=== PATIENT | male | born 1995 | race Caucasian/White ===

== ENCOUNTER 2016-06-08 11:11 | Emergency (ER) | payer BC ==
[~2016-06-08] VITALS: Ht 188 cm; Wt 97.8 kg
[2016-06-08 11:27] VITALS: TEMP 36.8; Ht 188 cm; Wt 97.8 kg
[2016-06-08] MEDS ORDERED: SODIUM CHLORIDE 0.9% 1000ML 500 ML IV ONE (12:48)
[2016-06-08] MEDS ORDERED: ONDANSETRON INJ 2 MG/ML 2 ML VIAL IV STA (12:48)
[2016-06-08] MEDS ORDERED: MoRPHine SULFATE 4 MG/ML 1 ML CARP\\VIAL ONE (12:49)
[2016-06-08] MEDS ORDERED: MoRPHine SULFATE 2 MG/ML CARP ONE (12:49)
[2016-06-08 12:56] LABS: HEMATOCRIT 45.1 % (42-52); MEAN CELL VOLUME 96.2 fL (80-100); MEAN CORPUSCULAR HEMOGLOBIN 34.1 pg (25-34); MEAN CORPUSCULAR HGB CONC 35.5 g/dl (32-36); MEAN PLATELET VOLUME 10.7 fL (7.4-10.4); PLATELET COUNT 249 K/uL (130-400); RED BLOOD COUNT 4.69 M/uL (4.7-6.1); WHITE BLOOD COUNT 7.07 K/uL (4.8-10.8)
[2016-06-08] MEDS ORDERED: MoRPHine SULFATE 10 MG/ML CARP/VIAL IV PRN (13:00)
[2016-06-08 13:01] VITALS: O2SAT 99
[2016-06-08 13:12] LABS: BUN/CREATININE RATIO 6.2 (10-20); CALCIUM 9.3 mg/dl (8.5-10.1); CREATININE 1.5 mg/dl (0.60-1.40); POTASSIUM 3.7 mmol/L (3.5-5.1)
[2016-06-08] MEDS ORDERED: KETOROLAC TROMETHAMINE 30 MG/ML VIAL IV STA (13:29)
[2016-06-08] MEDS ORDERED: HYDROmorphone INJ 1 MG/ML SYR IV PRN (13:30)
--- NOTE | 2016-06-08 14:20 | DIAGNOSTIC IMAGING REPORT ---
ABDOMEN AND PELVIS CT WITHOUT CONTRAST CT DOSE: 837.51 mGy.cm HISTORY: Flank pain left flank and testicle pain TECHNIQUE: Multiaxial CT images of the abdomen and pelvis were performed without the use of intravenous and oral contrast according to the standard department stone protocol. COMPARISON STUDY: None. FINDINGS: Lung bases are clear. Liver spleen and pancreas are unremarkable. Bowel pattern is nonobstructive. There are bilateral renal nonobstructing calcifications measuring 2 to 4 mm. There is slight fullness left renal collecting system and left ureter. Fullness left ureter extends to a partially obstructing calculus distal aspect of the left ureter. This calculus measures approximately 3.2 mm. Bladder is midline. There are no contained calcifications. There is no free fluid within the pelvic cul-de-sac. IMPRESSION: 1. 3.2 mm partially obstructing calculus distal left ureter. 2. Bilateral renal calcifications 3. Mild left hydroureteronephrosis 4. Otherwise negative study Electronically signed by: Raheem Beck M.D. 06/08/2016 2:19 PM Dictated Date/Time: 06/08/2016 2:16 PM
[2016-06-08] MEDS ORDERED: TAMSULOSIN HCL 0.4 MG CAP PO ONE (15:00)
[2016-06-08] MEDS ORDERED: OXYC1TAB3 PO ×2 (15:55→16:29)
[2016-06-08] MEDS ORDERED: TAMS0.4C38 PO ×2 (15:55→16:29)
[2016-06-08] MEDS ORDERED: PROM25TA9 PO ×2 (15:55→16:29)
[2016-06-08 16:25] VITALS: BP 139/81; PULSE 83; O2SAT 100
--- NOTE | 2016-06-08 16:37 | Pharmacy Progress Note ---
ED Pharmacist Progress Note Date of Service: Jun 08, 2016. Patient's pharmacy listed was not his local pharmacy and 3 prescriptions were electronically sent in error. Called [facility]ule[facility] at and spoke with pharmacy service associate. Per Dr. Ardon's request, provided verbal instructions to cancel the oxycodone, promethazine, and tamsulosin that was electronically transmitted. gallery intern acknowledged understanding.
--- NOTE | 2016-06-08 20:35 | EMERGENCY ROOM VISIT NOTE ---
History Report prepared by Eunice: Hilary Maynard Under the Supervision of: Dr. Albaro Ardon M.D. First contact with patient: 13:07 Chief Complaint: TESTICULAR PAIN Stated Complaint: TESTICULAR/BACK PAIN, TINGLING HANDS Nursing Triage Summary: History of kidney stones, believes he has one. Left lower back, abd and testicle pain. Hands are tingling this time. Feels like he has to pee but cant. History of Present Illness The patient is a 21 year old male who presents to the Emergency Room with complaints of gradually worsening left testicular pain that started about 5.5 hours ago, around 0800. The patient is also experiencing left lower quadrant abdominal pain and left-sided lower back pain. The abdominal pain started first then it radiated into his testicle and then he developed the back pain. The patient states that he has also been unable to urinate, but he has pressure in his abdomen like he has to go. The patient is also experiencing nausea and vomiting. He adds that he had a loose stool yesterday. Pt denies LOC, headache, fevers, chills, diaphoresis, visual changes, neck pain, chest pain, breathing difficulties, melena, hematochezia, numbness, weakness, lymphadenopathy, rash, or other complaints. He states that his symptoms feel similar to when he had a kidney stone two years ago. With the prior kidney stones, the patient's symptoms were relieved with Flomax. Source of History: patient Onset: about 5.5 hours ago, around 0800 Position: other (left testicle) Timing: worsening Associated Symptoms: + abdominal pain (LLQ), + back pain (lower, left-sided) , + diarrhea (loose stool yesterday), + nausea, + urinary symptoms (unable to urinate but has urge), + vomiting Review of Systems See HPI for pertinent positives and negatives. A total of ten systems were reviewed and were otherwise negative. Past Medical & Surgical Medical Problems: (1) Kidney stones Family History No pertinent family history Social History Smoking Status: Never Smoker Housing Status: lives with roommate Occupation Status: [employer] student Current/Historical Medications Scheduled Tamsulosin Hcl (Flomax), 0.4 MG PO DAILY Scheduled PRN Oxycodone Ir (Roxicodone Ir), 1-2 TAB PO Q4H PRN for Pain Promethazine Hcl (Phenergan), 25 MG PO Q6H PRN for Nausea Allergies Coded Allergies: No Known Allergies (Unverified , 06/08/16) Physical Exam Vital Signs Date Time Temp Pulse Resp B/P Pulse Ox O2 Delivery O2 Flow Rate FiO2 06/08/16 16:25 83 18 139/81 100 Room Air 06/08/16 14:06 81 18 132/89 06/08/16 13:43 75 20 146/88 98 06/08/16 13:04 87 06/08/16 13:01 99 Room Air 06/08/16 11:27 36.8 103 22 134/80 99 Room Air Physical Exam GENERAL: Awake, alert, uncomfortable appearing, in no distress HENT: Normocephalic, atraumatic. Oropharynx unremarkable. EYES: Normal conjunctiva. Sclera non-icteric. NECK: Supple. No nuchal rigidity. FROM. No JVD. RESPIRATORY: Clear to auscultation. CARDIAC: Regular rate, normal rhythm. Extremities warm and well perfused. Pulses equal. ABDOMEN: Soft, non-distended. No tenderness to palpation. No rebound or guarding. No masses. RECTAL: Deferred. MUSCULOSKELETAL: Chest examination reveals no tenderness. The back is symmetrical on inspection without obvious abnormality. There is left CVA tenderness to palpation. No joint edema. : Left testicular tenderness. No testicular swelling. Normal position. Normal scrotum. LOWER EXTREMITIES: Calves are equal size bilaterally and non-tender. No edema. No discoloration. NEURO: Normal sensorium. No sensory or motor deficits noted. SKIN: No rash or jaundice noted. Medical Decision & Procedures ER Provider Diagnostic Interpretation: CT results as stated below per my review and radiologist interpretation ABDOMEN AND PELVIS CT WITHOUT CONTRAST IMPRESSION: 1. 3.2 mm partially obstructing calculus distal left ureter. 2. Bilateral renal calcifications 3. Mild left hydroureteronephrosis 4. Otherwise negative study Electronically signed by: Raheem Beck M.D. 06/08/2016 2:19 PM Dictated Date/Time: 06/08/2016 2:16 PM Laboratory Results 06/08/16 12:40 06/08/16 12:40 Test 06/08/16 12:40 Red Blood Count 4.69 M/uL (4.7-6.1) Mean Corpuscular Volume 96.2 fL (80-100) Mean Corpuscular Hemoglobin 34.1 pg (25-34) Mean Corpuscular Hemoglobin Concent 35.5 g/dl (32-36) RDW Standard Deviation 47.8 fL (36.4-46.3) RDW Coefficient of Variation 13.7 % (11.5-14.5) Mean Platelet Volume 10.7 fL (7.4-10.4) Anion Gap 10.0 mmol/L (3-11) Est Creatinine Clear Calc Drug Dose 91.4 ml/min Estimated GFR () 76.6 Estimated GFR (Non- 66.1 BUN/Creatinine Ratio 6.2 (10-20) Calcium Level 9.3 mg/dl (8.5-10.1) Laboratory results reviewed by me Medications Administered Medications (Trade) Dose Ordered Sig/Kimber Route Start Time Stop Time Status Last Admin Dose Admin Sodium Chloride (Nss 1000ml) 500 ml @ 999 mls/hr Q31M ONCE IV 06/08/16 12:48 06/08/16 13:18 DC 06/08/16 12:59 999 MLS/HR Ondansetron HCl (Zofran Inj) 4 mg NOW STAT IV 06/08/16 12:48 06/08/16 12:49 DC 06/08/16 12:54 4 MG Morphine Sulfate (MoRPHine SULFATE INJ) 4 mg STK-MED ONCE .ROUTE 06/08/16 12:49 06/08/16 12:52 DC 06/08/16 12:56 4 MG Morphine Sulfate (MoRPHine SULFATE INJ) 2 mg STK-MED ONCE .ROUTE 06/08/16 12:49 06/08/16 12:53 DC 06/08/16 13:00 2 MG Ketorolac Tromethamine (Toradol Inj) 10 mg NOW STAT IV 06/08/16 13:29 06/08/16 13:32 DC 06/08/16 13:38 10 MG Hydromorphone HCl (Dilaudid Inj) 1 mg Q15M PRN IV 06/08/16 13:30 06/08/16 17:06 DC 06/08/16 13:38 1 MG Tamsulosin HCl (Flomax Cap) 0.4 mg NOW ONCE PO 06/08/16 15:00 06/08/16 15:01 DC 06/08/16 15:15 0.4 MG ED Course 1328: The patient was evaluated in room B12. A complete history and physical exam was performed. 1329: Ordered Toradol Inj 10 mg IV 1330: Ordered Dilaudid Inj 1 mg IV 1406: I reassessed the patient. He is feeling better. 1416: I updated the patient on his CT scan results. 1500: Ordered Tamsulosin HCl 0.4 mg PO 1515: I reevaluated the patient. Discussed results and discharge instructions: he verbalized understanding and agreement. The patient is ready for discharge. Medical Decision Triage Nursing notes reviewed. The patient's presentation and history were concerning for flank pain. Etiologies such as renal colic, appendicitis, diverticulitis, mesenteric ischemia, aortic pathology, infections, inflammatory bowel disease, PUD, biliary pathology, UTI, as well as others were entertained. The patient was evaluated. He was uncomfortable. He was given morphine and Zofran per protocol. He was feeling somewhat better. He still had a lot of pain. The patient was given Toradol and Dilaudid. He felt better with this medication. The patient had unremarkable laboratory testing. His CT scan revealed left-sided ureterolithiasis. He has multiple stones in the kidneys as well. Patient felt much better. He was ordered Flomax. He has used this medicine in the past with success. Because of the multiple stones I did refer the patient to urology. Unfortunately the patient did not give a urine specimen prior to discharge although it was ordered. By the evaluation outlined above other emergent etiologies such as those listed in the differential, as well as others, were deemed relatively unlikely. The patient was informed about the findings as listed above. All questions were answered and he was pleased with the treatment. Return instructions were outlined and the patient was discharged in stable condition. The patient was referred to [facility] urology for follow-up for a recheck of the current condition. The chart was completed utilizing [employer] Speech voice recognition software. Grammatical errors, random word insertions, pronoun errors, and incomplete sentences are an occasional consequence of this system due to software limitations, ambient noise, and hardware issues. Any formal questions or concerns about the content, text, or information contained within the body of this dictation should be directly addressed to the physician for clarification. [place] Drug Monitoring Program Search Results: patient reviewed within database, no issues identified Impression Primary Impression: Kidney stone Scribe Attestation The scribe's documentation has been prepared under my direction and personally reviewed by me in its entirety. I confirm that the note above accurately reflects all work, treatment, procedures, and medical decision making performed by me. Departure Information Dispostion Home / Self-Care Prescriptions Tamsulosin Hcl (FLOMAX) 0.4 Mg Cap 0.4 MG PO DAILY, #10 CAP Prov: Albaro Ardon MD 06/08/16 Oxycodone Ir (Roxicodone Ir) 5 Mg Tab 1-2 TAB PO Q4H Y for Pain, #15 TAB Prov: Albaor Ardon MD 06/08/16 Promethazine Hcl (Phenergan) 25 Mg Tab 25 MG PO Q6H Y for Nausea, #10 TAB Prov: Albaro Ardon MD 06/08/16 Referrals No Doctor, Assigned (PCP) Forms HOME CARE DOCUMENTATION FORM, IMPORTANT VISIT INFORMATION, WORK / SCHOOL INSTRUCTIONS Patient Instructions My [facility] Additional Instructions KIDNEY STONE INSTRUCTIONS: Oxycodone Immediate Release (OxyIR) 5mg: Take 1-2 pills every four hours for pain. Avoid alcohol, operating machinery or dangerous equipment, working on ladders or roofs, DRIVING, or situations where being under the influence may be dangerous. It is recommended to use an [id number]-[id number] stool softener such as Colace, 100mg twice daily while taking this medication to avoid constipation. Phenergan 25mg: Take one every six hours as needed for nausea. Avoid alcohol, operating machinery or dangerous equipment, working on ladders or roofs, DRIVING , or situations where being under the influence may be dangerous. Ibuprofen(Motrin, Advil) may be used for fever or pain. Use 600mg every six hours as needed. Take with food. Avoid using more than 2400mg in a 24 hour period. Do not use 2400mg per day for more than three consecutive days without physician direction. Prolonged inappropriate use can lead to stomach upset or ulcers. This medication can be taken if you need to drive, work, or perform activities which may be dangerous when taking narcotic pain medication. (AND/OR) Acetaminophen(Tylenol) may be used for fever or pain. Use 1000mg every six hours as needed. Avoid using more than 4000mg in a 24 hour period. This medication can be taken if you need to drive, work, or perform activities which may be dangerous when taking narcotic pain medication. Flomax 0.4 mg: Take one daily until stone passes. Review the package insert for all your medications. This is necessary as important health information is provided for your benefit and current care. Strain your urine and collect all the stones or debris for the urologists. Rest and avoid strenuous activity until your stone passes and symptoms resolve. Drink plenty of fluids. Return to the ER for worsening abdominal or back pain, vomiting, fevers, passing out, or as needed. Follow up with [facility] tomorrow, [phone], to arrange a visit.
== END 2016-06-08 16:38 | disposition home or self-care (01) ==
LOC: C.EDB 11:15 → EDBD 11:15 → C.EDB 16:38
DX: N20.0 Calculus of kidney (principal)